=== PATIENT | female | born 1965 | race Caucasian/White ===

== ENCOUNTER 2018-05-14 10:06 | Emergency (ER) | payer MEDICAID ==
[~2018-05-14] VITALS: Ht 157.5 cm; Wt 102.3 kg
[2018-05-14 10:11] VITALS: Ht 157.5 cm; Wt 102.3 kg
[2018-05-14] MEDS ORDERED: NORCO 5/325 TAB1 TAB PO (10:13)
[2018-05-14] MEDS ORDERED: IMITREX100 MG PO (10:13)
[2018-05-14] MEDS ORDERED: LIORESAL 10 MG10 MG PO (10:13)
[2018-05-14] MEDS ORDERED: NEURONTIN800 MG PO (10:14)
[2018-05-14] MEDS ORDERED: ULTRAM50 MG PO (10:14)
[2018-05-14] MEDS ORDERED: MOTRIN600 MG PO (10:15)
[2018-05-14] MEDS ORDERED: HYDROCHLOROTHIA25 MG PO (10:15)
[2018-05-14] MEDS ORDERED: TOPROL XL100 MG PO (10:15)
[2018-05-14] MEDS ORDERED: SYNTHROID88 MCG PO (10:16)
[2018-05-14] MEDS ORDERED: NORTRIPTYLINE H50 MG PO (10:16)
[2018-05-14] MEDS ORDERED: MIRAPEX0.5 MG PO (10:16)
[2018-05-14] MEDS ORDERED: PROZAC20 MG PO (10:16)
[2018-05-14] MEDS ORDERED: OMEPRAZOLE40 MG PO (10:16)
[2018-05-14] MEDS ORDERED: ALBUTEROL SULF8.5 GM INH (10:17)
[2018-05-14] MEDS ORDERED: ULTRAVATE50 GM TP (10:18)
[2018-05-14] MEDS ORDERED: BAYER CHEWABLE81 MG PO (10:18)
[2018-05-14] MEDS ORDERED: BUPROPION XL300 MG PO (10:18)
[2018-05-14] MEDS ORDERED: SYMBICORT 16010.2 GM INH (10:18)
[2018-05-14] MEDS ORDERED: MULTI-DAY VITAM1 TAB PO (10:19)
[2018-05-14 11:38] VITALS: BP 144/77
== END 2018-05-14 11:39 | disposition home or self-care (01) ==
LOC: D.ER 10:06
DX: G43.909 Migraine, unspecified, not intractable, without status migrainosus (principal); E07.9 Disorder of thyroid, unspecified; I10 Essential (primary) hypertension; J44.9 Chronic obstructive pulmonary disease, unspecified; E88.01 Alpha-1-antitrypsin deficiency; K21.9 Gastro-esophageal reflux disease without esophagitis

== ENCOUNTER 2018-05-16 02:03 | Emergency (ER) | payer MEDICAID ==
[~2018-05-16] VITALS: Ht 157.5 cm; Wt 102.3 kg
[~2018-05-16 02:03] MED LIST: ALBUTEROL SULF8.5 GM INH; BAYER CHEWABLE81 MG PO; BUPROPION XL300 MG PO; HYDROCHLOROTHIA25 MG PO; IMITREX100 MG PO; LIORESAL 10 MG10 MG PO; MIRAPEX0.5 MG PO; MOTRIN600 MG PO; MULTI-DAY VITAM1 TAB PO; NEURONTIN800 MG PO; NORCO 5/325 TAB1 TAB PO; NORTRIPTYLINE H50 MG PO; OMEPRAZOLE40 MG PO; PROZAC20 MG PO; SYMBICORT 16010.2 GM INH; SYNTHROID88 MCG PO; TOPROL XL100 MG PO; ULTRAM50 MG PO; ULTRAVATE50 GM TP
[2018-05-16 02:09] VITALS: Ht 157.5 cm; Wt 102.3 kg
[2018-05-16] MEDS ORDERED: STADOL NASAL S2.5 ML NASAL (02:44)
[2018-05-16 03:11] VITALS: BP 134/77
== END 2018-05-16 03:11 | disposition home or self-care (01) ==
LOC: D.ER 02:03
DX: G43.909 Migraine, unspecified, not intractable, without status migrainosus (principal); E07.9 Disorder of thyroid, unspecified; I10 Essential (primary) hypertension; J44.9 Chronic obstructive pulmonary disease, unspecified; E88.01 Alpha-1-antitrypsin deficiency; K21.9 Gastro-esophageal reflux disease without esophagitis

== ENCOUNTER 2018-06-23 09:17 | Emergency (ER) | payer MEDICAID ==
[~2018-06-23] VITALS: Ht 157.5 cm; Wt 102.3 kg
[~2018-06-23 09:17] MED LIST changes: +STADOL NASAL S2.5 ML NASAL
[2018-06-23 09:21] VITALS: Ht 157.5 cm; Wt 102.3 kg
[2018-06-23 11:45] VITALS: BP 124/62
== END 2018-06-23 11:45 | disposition home or self-care (01) ==
LOC: D.ER 09:17
DX: G43.119 Migraine with aura, intractable, without status migrainosus (principal); I10 Essential (primary) hypertension; J44.9 Chronic obstructive pulmonary disease, unspecified; E88.01 Alpha-1-antitrypsin deficiency

== ENCOUNTER 2018-07-18 07:00 | Emergency (ER) | payer MEDICAID ==
[~2018-07-18] VITALS: Ht 157.5 cm; Wt 107.7 kg
[2018-07-18 07:03] VITALS: Ht 157.5 cm; Wt 107.7 kg
[2018-07-18 07:33] LABS: BASOPHILS 0.1 % (0-2); EOSINOPHILS 2.5 % (0-7); HEMATOCRIT 37.4 % (36.0-48.0); HEMOGLOBIN 12.4 g/dL (12-16); IMMATURE GRANULOCYTES 0.5 % (0-5); MCHC 33.2 g/dL (31.0-37.0); MCV 87.4 fL (80.0-100.0); MEAN PLATELET VOLUME 8.8 fL (7.4-10.4); MONOCYTES 8.4 % (2-11); NEUTROPHILS 68.5 % (40-80); PLATELET COUNT 313 10x3/uL (130-400); RBC 4.28 10x6/uL (4.00-5.40); RDW 14.5 % (11.5-14.5); WBC 7.9 10x3/uL (4.8-10.8)
[2018-07-18 07:47] LABS: ALBUMIN 3.8 g/dL (3.4-5.0); ANION GAP 16.3 mmol/L (8-16); BILIRUBIN - TOTAL 0.26 mg/dL (0.2-1.3); CALCIUM 9.5 mg/dL (8.5-10.1); CARBON DIOXIDE 24.7 mmol/L (21.0-32.0); CREATININE - SERUM 1.1 mg/dL (0.6-1.3); MAGNESIUM - SERUM 1.8 mg/dL (1.8-2.4); PROTEIN - SERUM 8.3 g/dL (6.4-8.2)
[2018-07-18] MEDS ORDERED: ZOFRAN ODT4 MG/UDTAB PO (07:50)
[2018-07-18] MEDS ORDERED: LOMOTIL 2.5-0.1 EAC1 PO (07:50)
[2018-07-18 08:00] LABS: APPEARANCE CLEAR (CLEAR); BILIRUBIN NEGATIVE (NEGATIVE); COLOR YELLOW (YELLOW); GLUCOSE NEGATIVE (NEGATIVE); KETONE NEGATIVE (NEGATIVE); NITRITE NEGATIVE (NEGATIVE); PROTEIN NEGATIVE (NEGATIVE); UROBILINOGEN NORMAL (NORMAL)
[2018-07-18 08:05] VITALS: BP 124/70
[2018-07-20 07:58] VITALS: Ht 157.5 cm; Wt 107.7 kg
== END 2018-07-18 08:06 | disposition home or self-care (01) ==
LOC: D.ER 07:00
PROVIDERS: Family Medicine
DX: R19.7 Diarrhea, unspecified (principal); I10 Essential (primary) hypertension; J44.9 Chronic obstructive pulmonary disease, unspecified

== ENCOUNTER 2018-07-19 23:15 | Inpatient (IN) | payer MEDICAID ==
[~2018-07-19] VITALS: Ht 157.5 cm; Wt 71.4 kg
[~2018-07-19 23:15] MED LIST changes: +LOMOTIL 2.5-0.1 EAC1 PO; +ZOFRAN ODT4 MG/UDTAB PO
[2018-07-19 23:57] LABS: BASOPHILS 0.1 % (0-2); EOSINOPHILS 3.3 % (0-7); HEMATOCRIT 41.7 % (36.0-48.0); HEMOGLOBIN 13.6 g/dL (12-16); IMMATURE GRANULOCYTES 0.3 % (0-5); LYMPHOCYTES 18.6 % (15-50); MCH 29.1 pg (26.0-34.0); MCHC 32.6 g/dL (31.0-37.0); MCV 89.3 fL (80.0-100.0); MEAN PLATELET VOLUME 8.8 fL (7.4-10.4); MONOCYTES 11.8 % (2-11); NEUTROPHILS 65.9 % (40-80); RBC 4.67 10x6/uL (4.00-5.40); RDW 14.6 % (11.5-14.5); WBC 8.7 10x3/uL (4.8-10.8)
[2018-07-19 23:59] LABS: PLATELET COUNT 388 10x3/uL (130-400)
[2018-07-20 00:10] LABS: ALBUMIN 3.9 g/dL (3.4-5.0); ANION GAP 11.2 mmol/L (8-16); BILIRUBIN - TOTAL 0.4 mg/dL (0.2-1.3); CALCIUM 9.3 mg/dL (8.5-10.1); CREATININE - SERUM 1.3 mg/dL (0.6-1.3); POTASSIUM - SERUM 4.2 mmol/L (3.5-5.1); PROTEIN - SERUM 8.4 g/dL (6.4-8.2)
[2018-07-20 01:30] LABS: AMYLASE - SERUM 25 U/L (25-115); LIPASE 109 U/L (73-393)
[2018-07-20 02:03] LABS: APPEARANCE CLEAR (CLEAR); BILIRUBIN NEGATIVE (NEGATIVE); COLOR YELLOW (YELLOW); GLUCOSE NEGATIVE (NEGATIVE); KETONE NEGATIVE (NEGATIVE); NITRITE NEGATIVE (NEGATIVE); PROTEIN NEGATIVE (NEGATIVE); SPECIFIC GRAVITY 1.015 (1.005-1.020); UROBILINOGEN NORMAL (NORMAL)
[2018-07-20 05:54] VITALS: BP 148/70; BMI 44.4
[2018-07-20 07:58] VITALS: Ht 157.5 cm; Wt 71.4 kg
[2018-07-20 08:39] LABS: BASOPHILS 0.1 % (0-2); EOSINOPHILS 2.3 % (0-7); HEMATOCRIT 39.9 % (36.0-48.0); IMMATURE GRANULOCYTES 0.3 % (0-5); MCHC 32.6 g/dL (31.0-37.0); MCV 89.1 fL (80.0-100.0); MEAN PLATELET VOLUME 8.7 fL (7.4-10.4); MONOCYTES 8.1 % (2-11); NEUTROPHILS 75.2 % (40-80); PLATELET COUNT 334 10x3/uL (130-400); RBC 4.48 10x6/uL (4.00-5.40); RDW 14.7 % (11.5-14.5); WBC 7.9 10x3/uL (4.8-10.8)
[2018-07-20 08:50] LABS: ALBUMIN 3.4 g/dL (3.4-5.0); ANION GAP 14.3 mmol/L (8-16); BILIRUBIN - TOTAL 0.38 mg/dL (0.2-1.3); CALCIUM 8.3 mg/dL (8.5-10.1); CARBON DIOXIDE 25.5 mmol/L (21.0-32.0); CREATININE - SERUM 1.1 mg/dL (0.6-1.3); POTASSIUM - SERUM 3.8 mmol/L (3.5-5.1); PROTEIN - SERUM 7.7 g/dL (6.4-8.2)
[2018-07-20 11:33] VITALS: BP 134/74
[2018-07-20 16:41] VITALS: BP 140/78
[2018-07-20 19:40] VITALS: BP 119/69
[2018-07-20 23:55] VITALS: BP 131/56
[2018-07-21 03:45] VITALS: BP 117/59
[2018-07-21 06:56] LABS: BASOPHILS 0.5 % (0-2); EOSINOPHILS 3.6 % (0-7); HEMATOCRIT 34.1 % (36.0-48.0); IMMATURE GRANULOCYTES 0.9 % (0-5); LYMPHOCYTES 18.5 % (15-50); MCH 28.8 pg (26.0-34.0); MCHC 32.3 g/dL (31.0-37.0); MCV 89.3 fL (80.0-100.0); MEAN PLATELET VOLUME 9.2 fL (7.4-10.4); MONOCYTES 10.5 % (2-11); PLATELET COUNT 249 10x3/uL (130-400); RBC 3.82 10x6/uL (4.00-5.40); RDW 14.8 % (11.5-14.5); WBC 5.8 10x3/uL (4.8-10.8)
[2018-07-21 07:35] LABS: ALBUMIN 2.9 g/dL (3.4-5.0); ALKALINE PHOSPHATASE 84 U/L (46-116); ALT (SGPT) 22 U/L (10-68); BILIRUBIN - TOTAL 0.25 mg/dL (0.2-1.3); CALC OSMOLALITY 278 mosm/kg (275-300); CALCIUM 7.9 mg/dL (8.5-10.1); CARBON DIOXIDE 23.6 mmol/L (21.0-32.0); CHLORIDE - SERUM 106 mmol/L (98-107); CREATININE - SERUM 0.8 mg/dL (0.6-1.3); GLUCOSE 109 mg/dL (74-106); POTASSIUM - SERUM 3.2 mmol/L (3.5-5.1); PROTEIN - SERUM 6.3 g/dL (6.4-8.2); SODIUM 140 mmol/L (136-145); UREA NITROGEN 9 mg/dL (7-18); eGFR NON AFRICAN AMERICAN 80 mL/min (90-120)
[2018-07-21 08:24] VITALS: BP 150/63
[2018-07-21 12:03] VITALS: BP 147/89
[2018-07-21 16:00] VITALS: BP 134/74
[2018-07-21 20:00] VITALS: BP 122/73
[2018-07-22] VITALS (8 sets, daily range): BP systolic 98–145; BP diastolic 45–88
[2018-07-22 07:10] LABS: BASOPHILS 0.2 % (0-2); EOSINOPHILS 4.9 % (0-7); HEMATOCRIT 33.6 % (36.0-48.0); HEMOGLOBIN 10.6 g/dL (12-16); IMMATURE GRANULOCYTES 0.5 % (0-5); LYMPHOCYTES 24.3 % (15-50); MCH 28.2 pg (26.0-34.0); MCHC 31.5 g/dL (31.0-37.0); MCV 89.4 fL (80.0-100.0); MEAN PLATELET VOLUME 8.7 fL (7.4-10.4); MONOCYTES 9.5 % (2-11); NEUTROPHILS 60.6 % (40-80); PLATELET COUNT 245 10x3/uL (130-400); RBC 3.76 10x6/uL (4.00-5.40); RDW 14.7 % (11.5-14.5); WBC 6.3 10x3/uL (4.8-10.8)
[2018-07-22 07:26] LABS: ALBUMIN 3.1 g/dL (3.4-5.0); ANION GAP 13.5 mmol/L (8-16); BILIRUBIN - TOTAL 0.13 mg/dL (0.2-1.3); CALCIUM 8.1 mg/dL (8.5-10.1); CARBON DIOXIDE 25.7 mmol/L (21.0-32.0); CREATININE - SERUM 0.9 mg/dL (0.6-1.3); POTASSIUM - SERUM 3.2 mmol/L (3.5-5.1); PROTEIN - SERUM 6.9 g/dL (6.4-8.2)
--- NOTE | 2018-07-22 13:24 | MORECARE ---
CASE MANAGEMENT DISCHARGE SUMMARY PATIENT: TOBY ANNA UNIT: [id number] ADM DATE: 07/20/18 AGE: 53 : 69 SEX: F ROOM/BED: D.1202 AUTHOR: ANGI PARTIDA PHYSICIAN: REFERRING PHYSICIAN: ROSEMARIE VALDEZ MD DATE OF SERVICE: 07/22/18 Discharge Plan Patient Name: TOBY ANNA Facility: [facility]:[place] : 1965 Planned Disposition: Home Anticipated Discharge Date: 07/23/18 Discharge Date: Expected LOS: 3 Initial Reviewer: [email or web address] Initial Review Date: 07/22/2018 Generated: 07/22/18 2:23 pm Patient Name: TOBY ANNA Page [phone] at 1324 All edits/amendments must be made on the electronic document DICTATION DATE: 07/22/18 1323 TRIGONOMETRY TUTOR: SURESH 07/22/18 1323 RPT#: [id number] DC DATE: STATUS: ADM IN [facility] [address] [place] [address] END OF REPORT
--- NOTE | 2018-07-22 13:30 | MORECARE ---
CASE MANAGEMENT DISCHARGE SUMMARY PATIENT: TOBY ANNA UNIT: [id number] ADM DATE: 07/20/18 AGE: 53 : 69 SEX: F ROOM/BED: D.1202 AUTHOR: ANGI PARTIDA PHYSICIAN: REFERRING PHYSICIAN: ROSEMARIE VALDEZ MD DATE OF SERVICE: 07/22/18 Discharge Plan Patient Name: TOBY ANNA Facility: [facility]:[place] : 1965 Planned Disposition: Home Anticipated Discharge Date: 07/23/18 Discharge Date: Expected LOS: 3 Initial Reviewer: [email or web address] Initial Review Date: 07/22/2018 Generated: 07/22/18 2:30 pm DCPIA - Discharge Planning Initial Assessment Updated by [email or web address]: Esthela Power on 07/22/18 1:25 pm * Is the patient Alert and Oriented? Yes * How many steps to enter\exit or inside your home? 23 w/rail * PCP Terra Jolly with [facility]. Changing to Dr. Sharp * Pharmacy [facility] on [address] * Preadmission Environment Home with Family * ADLs Partial Dependent * Partial ADLs (Assistance needed) Dressing * Equipment Back Brace Bedside Commode Cane Walker * Other Equipment Spinal Stimulator * List name and contact numbers for known caregivers / representatives who currently or will assist patient after discharge: Daniel Louie Jr., Significant other, * Verbal permission to speak to the caregivers and representatives has been obtained from the patient. Yes * Community resources currently utilized None * Additional services required to return to the preadmission environment? No * Can the patient safely return to the preadmission environment? Yes * Has this patient been hospitalized within the prior 30 days at any hospital? No Last DP export: 07/22/18 12:24 Patient Name: TOBY ANNA Page 31420 at 1330 All edits/amendments must be made on the electronic document DICTATION DATE: 07/22/18 1330 CANDY MIXER: SURESH 07/22/18 1330 RPT#: [id number] DC DATE: STATUS: ADM IN [facility] [address] [place] [address] END OF REPORT
--- NOTE | 2018-07-22 14:09 | MORECARE ---
CASE MANAGEMENT DISCHARGE SUMMARY PATIENT: TOBY ANNA UNIT: [id number] ADM DATE: 07/20/18 AGE: 53 : 69 SEX: F ROOM/BED: D.1202 AUTHOR: JAQUAN,DOC PHYSICIAN: REFERRING PHYSICIAN: ROSEMARIE VALDEZ MD DATE OF SERVICE: 07/22/18 Discharge Plan Patient Name: TOBY ANNA Facility: [facility]:[place] : 1965 Planned Disposition: Home Anticipated Discharge Date: 07/23/18 Discharge Date: Expected LOS: 3 Initial Reviewer: [email or web address] Initial Review Date: 07/22/2018 Generated: 07/22/18 3:09 pm Comments DCP- Discharge Planning Updated by [email or web address]: Esthela Power on 07/22/18 1:[address] Patient Name: TOBY ANNA Admission Status: ER Accout number: [id number] Admission Date: 07-20-2018 : 1965 Admission Diagnosis: Attending: ROSEMARIE CONKLIN Current LOS: 2 Anticipated DC Date: 07-23-2018 Planned Disposition: Home Primary Insurance: MEDICAID [place] Discharge Planning Comments: After Daniel obtaining verbal consent, CM met with patient and significant other, Daniel Louie JrGuille ([phone]) about discharge planning / needs. Patient states her plan is to return home where she lives with Daniel. Denies any discharge planning needs. States Daniel will drive her home upon hospital discharge. States Daniel helps her with anything she needs. CM will continue to follow and assist as needed with discharge planning / needs Outbound Call Center Representative: Esthela Power DCPIA - Discharge Planning Initial Assessment Updated by [email or web address]: Esthela Power on 07/22/18 1:25 pm * Is the patient Alert and Oriented? Yes * How many steps to enter\exit or inside your home? 23 w/rail * PCP Terra Jolly with [facility]. Changing to Dr. Sharp * Pharmacy [facility] on [address] * Preadmission Environment Home with Family * ADLs Partial Dependent * Partial ADLs (Assistance needed) Dressing * Equipment Back Brace Bedside Commode Cane Walker * Other Equipment Spinal Stimulator * List name and contact numbers for known caregivers / representatives who currently or will assist patient after discharge: Daniel Louie Jr., Significant other, * Verbal permission to speak to the caregivers and representatives has been obtained from the patient. Yes * Community resources currently utilized None * Additional services required to return to the preadmission environment? No * Can the patient safely return to the preadmission environment? Yes * Has this patient been hospitalized within the prior 30 days at any hospital? No Last DP export: 07/22/18 12:30 Patient Name: TOBY ANNA Page [phone] at 1409 All edits/amendments must be made on the electronic document DICTATION DATE: 07/22/181407 HIGH SCHOOL BAND TEACHER: SURESH 07/22/181407 RPT#: [id number] DC DATE: STATUS: ADM IN [facility] [address] [place] [address] END OF REPORT
[2018-07-23] VITALS: BP 121/65
[2018-07-23 04:00] VITALS: BP 133/77
[2018-07-23 07:09] LABS: BASOPHILS 0.3 % (0-2); EOSINOPHILS 6.2 % (0-7); HEMATOCRIT 32.9 % (36.0-48.0); HEMOGLOBIN 10.4 g/dL (12-16); IMMATURE GRANULOCYTES 0.9 % (0-5); LYMPHOCYTES 20.4 % (15-50); MCH 28.3 pg (26.0-34.0); MCHC 31.6 g/dL (31.0-37.0); MCV 89.4 fL (80.0-100.0); MEAN PLATELET VOLUME 9.3 fL (7.4-10.4); MONOCYTES 8.7 % (2-11); NEUTROPHILS 63.5 % (40-80); PLATELET COUNT 269 10x3/uL (130-400); RBC 3.68 10x6/uL (4.00-5.40); RDW 14.8 % (11.5-14.5); WBC 6.7 10x3/uL (4.8-10.8)
[2018-07-23 07:31] LABS: ALBUMIN 3.1 g/dL (3.4-5.0); ANION GAP 15.3 mmol/L (8-16); BILIRUBIN - TOTAL 0.12 mg/dL (0.2-1.3); CALCIUM 8.8 mg/dL (8.5-10.1); CARBON DIOXIDE 24.8 mmol/L (21.0-32.0); CREATININE - SERUM 0.9 mg/dL (0.6-1.3); POTASSIUM - SERUM 3.1 mmol/L (3.5-5.1); PROTEIN - SERUM 6.6 g/dL (6.4-8.2)
[2018-07-23 08:28] VITALS: BP 122/87
[2018-07-23] MEDS ORDERED: DIFLUCAN150 MG PO (09:19)
[2018-07-23] MEDS ORDERED: LEVAQUIN750 MG PO (09:19)
[2018-07-23] MEDS ORDERED: FLAGYL500 MG PO (09:19)
[2018-07-23 16:03] VITALS: BP 135/81
--- NOTE | 2018-07-24 09:31 | MORECARE ---
CASE MANAGEMENT DISCHARGE SUMMARY PATIENT: TOBY ANNA UNIT: [id number] ADM DATE: 07/20/18 AGE: 53 : 69 SEX: F ROOM/BED: D.1202 AUTHOR: JAQUAN,DOC PHYSICIAN: REFERRING PHYSICIAN: ROSEMARIE VALDEZ MD DATE OF SERVICE: 07/24/18 Discharge Plan Patient Name: TOBY ANNA Facility: [facility]:[place] : 1965 Planned Disposition: Home Anticipated Discharge Date: 07/23/18 Discharge Date: 07/23/2018 Expected LOS: 3 Initial Reviewer: [email or web address] Initial Review Date: 07/22/2018 Generated: 07/24/18 10:31 am Comments DCP- Discharge Planning Updated by [email or web address]: Esthela Power on 07/22/18 1:[address] Patient Name: TOBY ANNA Admission Status: ER Accout number: [id number] Admission Date: 07-20-2018 : 1965 Admission Diagnosis: Attending: ROSEMARIE CONKLIN Current LOS: 2 Anticipated DC Date: 07-23-2018 Planned Disposition: Home Primary Insurance: MEDICAID [place] Discharge Planning Comments: After Daniel obtaining verbal consent, CM met with patient and significant other, Daniel Louie JrGuille ([phone]) about discharge planning / needs. Patient states her plan is to return home where she lives with Daniel. Denies any discharge planning needs. States Daniel will drive her home upon hospital discharge. States Daniel helps her with anything she needs. CM will continue to follow and assist as needed with discharge planning / needs Insurance Customer Service Specialist: Esthela Power DCPIA - Discharge Planning Initial Assessment Updated by [email or web address]: Esthela Power on 07/22/18 1:25 pm * Is the patient Alert and Oriented? Yes * How many steps to enter\exit or inside your home? 23 w/rail * PCP Terra Jolly with [facility]. Changing to Dr. Sharp * Pharmacy [facility] on [address] * Preadmission Environment Home with Family * ADLs Partial Dependent * Partial ADLs (Assistance needed) Dressing * Equipment Back Brace Bedside Commode Cane Walker * Other Equipment Spinal Stimulator * List name and contact numbers for known caregivers / representatives who currently or will assist patient after discharge: Daniel Liban Hurst, Significant other, * Verbal permission to speak to the caregivers and representatives has been obtained from the patient. Yes * Community resources currently utilized None * Additional services required to return to the preadmission environment? No * Can the patient safely return to the preadmission environment? Yes * Has this patient been hospitalized within the prior 30 days at any hospital? No Last DP export: 07/22/18 1:09 Patient Name: TOBY ANNA Page 48435 at 0931 All edits/amendments must be made on the electronic document DICTATION DATE: 07/24/18929 SIDE LASTER: SURESH 07/24/18929 RPT#: [id number] DC DATE:07/23/18 STATUS: DIS IN [facility] [address] [place] [address] END OF REPORT
[2018-07-29 03:06] LABS: OVA + PARASITE EXAM Final report (())
== END 2018-07-23 17:43 | disposition home or self-care (01) | DRG 392 ==
LOC: D.ER 23:15 → D.M3 07-20 04:05
PROVIDERS: Emergency Medicine; Family Medicine; ADMIT Family Medicine
DX: K52.9 Noninfective gastroenteritis and colitis, unspecified (principal); G47.30 Sleep apnea, unspecified; J44.9 Chronic obstructive pulmonary disease, unspecified; K21.9 Gastro-esophageal reflux disease without esophagitis; F32.9 Major depressive disorder, single episode, unspecified; I10 Essential (primary) hypertension; E87.6 Hypokalemia; D64.9 Anemia, unspecified; G43.909 Migraine, unspecified, not intractable, without status migrainosus

== ENCOUNTER 2018-11-12 08:55 | Day surgery (SDC) | payer MEDICAID ==
[2018-11-11 11:19] LABS: HEMATOCRIT 36.8 % (36.0-48.0); HEMOGLOBIN 11.8 g/dL (12-16); MCH 28.4 pg (26.0-34.0); MCHC 32.1 g/dL (31.0-37.0); MCV 88.5 fL (80.0-100.0); MEAN PLATELET VOLUME 8.9 fL (7.4-10.4); RBC 4.16 10x6/uL (4.00-5.40); RDW 14.3 % (11.5-14.5); WBC 7.9 10x3/uL (4.8-10.8)
[2018-11-11 11:25] LABS: ANION GAP 13.9 mmol/L (8-16); CALCIUM 9.4 mg/dL (8.5-10.1); CARBON DIOXIDE 28.7 mmol/L (21.0-32.0); POTASSIUM - SERUM 3.6 mmol/L (3.5-5.1)
[~2018-11-12] VITALS: Ht 157.5 cm; Wt 112.0 kg
[~2018-11-12 08:55] MED LIST changes: +DIFLUCAN150 MG PO; +FLAGYL500 MG PO; +LEVAQUIN750 MG PO; +METOPROLOL TART50 MG PO
[2018-11-12] MEDS ORDERED: KENALOG 0.1 % O15 GM TOPICAL (10:09)
[2018-11-12 10:10] VITALS: BP 132/54; Ht 157.5 cm; Wt 112.0 kg
[2018-11-12] MEDS ORDERED: KENALOG 0.1 % 115 GM TOPICAL (10:10)
[2018-11-12 10:18] LABS: HCG URINE NEGATIVE (NEGATIVE)
--- NOTE | 2018-11-12 16:02 | NUR ---
CARE TO GRACIELA GREGORY @[id number]
--- NOTE | 2018-11-12 17:36 | NUR ---
1730 PT EATING FULL LIQ TRAY. VS STABLE. URGE TO URINATE
--- NOTE | 2018-11-12 17:58 | NUR ---
PT ASSISTED TO BATHROOM,STEADY VOIDED. ADEQUET AMT. BLOOD NOTED. PT SKIN CLEANED AND INSTRUCTIONS GIVEN. DRINKING A COKE PER REQUEST. DENIES PAIN. RESTING FOR NOW
--- NOTE | 2018-11-12 19:08 | NUR ---
1900 IV REMOVED PRESSURE HELD,DRESSING APPLIED. PT EATTING WELL.
--- NOTE | 2018-11-12 19:10 | NUR ---
1900 FAMILY WENT TO HOUSE TO GET HER CLOTHES FOR PT
--- NOTE | 2018-11-12 20:58 | OP ---
PATIENT NAME: TOBY ANNA MEDICAL RECORD: [id number] :[birth year] LOCATION:D.OPS ADMISSION DATE: SURGEON: ADY GONZALEZ MD DATE OF OPERATION: 11/12/2018 SURGEON: Ady Gonzalez MD ANESTHESIA: General anesthesia by Jace Murray MD DIAGNOSES: Female stress urinary incontinence; midline cystocele, [place]-Walker grade II; alpha-1 antitrypsin deficiency. PROCEDURES: 1. Cystoscopy. 2. Pubovaginal sling with mesh - Coloplast Pietro graft. 3. Cystocele repair with cadaveric human dermis - Coloplast [place] dermis 8 x 12-cm sheet. BLOOD LOSS: 50 mL. SPECIMENS: None. FINDINGS: On cystoscopy, no bladder injury and no bladder tumors. Single ureteral orifices bilaterally. CLINICAL HISTORY: This is a 53-year-old female, A0, who has symptoms of female stress urinary incontinence. It has been present for years, but it has become much worse in the past 1-1/2 years. With coughing, sneezing, laughing, bending over, or lifting, she will have urinary incontinence. She is also having issues with leaking at night and wetting her bed. She has to use Depends and she is very bothered by this. She also leaks urine with sexual activity. She has no trouble having a bowel movement. She has no issues with emptying her rectum with defecation. Significantly, she has been found to have COPD and emphysema even though she has never smoked. She was worked up by pulmonology and found to have alpha-1 antitrypsin deficiency as the cause of this. This enzyme deficiency causes a net overactivity of collagenase and elastase enzymes, which break down connective tissue not only in the lungs but the entire body. As a result, she has laxity of the pelvic floor causing a cystocele, a minor degree of rectocele, and female stress urinary incontinence. On physical examination, she has a hypermobile urethra with female stress incontinence. She has a positive Ranjith test. She still has her uterus. She has a midline cystocele, [place]-Walker grade II; and a rectocele, [place]-Walker grade I. However, as she has no defecation symptoms from her rectocele, we did not do a rectocele repair today. Initially, I discussed using mesh versus fascia for the repairs. Due to her alpha-1 antitrypsin deficiency, she had agreed to use mesh as it would be resistant to enzymatic degradation. However,in the past week, the Food and Drug Administration suddenly had all pelvic prolapse mesh removed from the market. Also fl3ur has removed the bovine fascia that I had been using previously, off the market. The FDA decision did not affect the use of mesh for a pubovaginal sling. Also the use of mesh for sacral suspension, i.e., an abdominal sacrocolpopexy, is not affected. As a result of the FDA decision, I now have no other choice but to use cadaveric human dermis as it is the only remaining graft material left on the market. The alternative is to harvest the patient's own tissues; however, as I mentioned OPERATIVE REPORT [id number] WILFRIDOTOBY above, her own tissues are weak because of her enzyme deficiency and therefore it would not be of use to harvest her own tissues. SHE IS ALLERGIC TO NARAYAN INHIBITORS, PENICILLIN, AND MORPHINE. She was given Levaquin IV on-call to the OR. DESCRIPTION OF PROCEDURE: The patient was given induction of general anesthesia. She continued to have a lot of problems with restless legs syndrome and continuous movement of the legs even under anesthesia. Therefore, we had to get her intubated and ventilated and have her paralyzed for the case. She was shaved, prepped, and draped. A weighted speculum was used to hold down posterior vaginal wall. A Camargo catheter was inserted into the bladder and put to bag drainage. The labia majora was retracted laterally using stay sutures of #2 nylon. The #2 nylon was anchored to the medial thighs. The anterior vaginal wall was then infiltrated with Pitressin solution. Twenty units of Pitressin was dissolved in 100 mL of injectable normal saline. This served to perform hydrodissection of the anterior vaginal wall. I made a transverse incision at the level of the bladder neck. This was dissected through the pubocervical fascia, and on the anterolateral sides, I cleared off the obturator membrane. We also entered the space of Retzius anteriorly. Deeper in, we cleared off the ischial spine in the presacral space. The sacrospinous ligament, which attaches to the ischial spine, was dissected free with blunt dissection using fingers. At this point, the 4 suspensory sutures for the cystocele repair were inserted. We used the fl3ur Capio suturing device to place 2-0 Prolene sutures. The 2 posterior sutures were placed through the sacrospinous ligament 1 cm medial to the ischial spine. The purpose of moving medially is to avoid hitting the internal pudendal artery and nerve. These were tested for strength and they were found to be quite strong in their attachment. The anterior 2 suspensory sutures were placed up on to Reese's ligament. These were also tested for strength and they were found to be quite strong. The distance from ischial spine to ischial spine was measured using a flexible tape measure. This was actually 12 cm, which is ideal as this is the length of our graft. The distance from the apex of the vaginal dissection to the bladder neck was measured at 6 cm. An 8 x 12 cadaveric human dermis graft was marked out with an arch along the posterior wall so that the apex of the arch would be only 6 cm in depth. The purpose of the arch serves to give some space to allow for rectal expansion during defecation. The dermis was soaked in normal saline for a minute or two to rehydrate it. The 4 suspensory sutures were put through the respective corners. The 2 posterior graft arms was then pushed using Eritrean forceps all the way to the ischial spine and the sacrospinous ligament level. The suspensory sutures were then all tied down. This affected a good reduction of the cystocele. We then landmarked for the pubovaginal sling. The insertion point is inferior to the insertion of the adductor longus muscle on the descending pubic ramus. This corresponding point was marked on each side using a marking pen. A stab incision was made using #15 blade. The helical trocar was then placed through this insertion site and wound behind the descending pubic ramus and exited the anterior apex of the obturator membrane into the vaginal dissection space. Here, through the slots at the tip of the helical trocar, we inserted the Pietro polypropylene mesh graft. The helical trocars were then withdrawn, resulting in transobturator passage of the graft. I made sure that the graft lay flat under the mid urethra. I used a tacking suture of 3-0 Vicryl to prevent backwards migration of the graft towards the bladder neck. At this point, the graft still lay loosely under the urethra. The Camargo catheter was then removed. A 17-[place] cystoscope was used for visualization. No bladder injury was noted. OPERATIVE REPORT [id number] WILFRIDOTOBY While I was performing cystoscopy, I filled the bladder up to capacity using normal saline. Once the scope was removed, we could see fluid exiting per the urethra. The graft tension was gradually increased until there was no further leakage per the urethra. With fair amount of suprapubic pressure applied manually, I was able to elicit some leakage per the urethra. I increased the tension slightly, but I did not want to make it too tight that she would have trouble voiding after surgery. The graft arms were then cut off where they exited the skin in the groin incision area. The groin incisions were closed using simple interrupted 4-0 Vicryl. The vaginal dissection space was irrigated out using normal saline. The vaginal incision was closed using running 4-0 Vicryl. Vaginal packing consisting of Kerlix infiltrated with estrogen cream was placed into the vagina. It will be removed prior to her going home today. The Camargo catheter was removed. We will try to have her void today prior to going home. The 2 lateral retraction sutures of the labia majora were cut and removed entirely. The patient was awakened and brought back to the recovery room. I will see her at the end of this week to check to be sure that she is voiding and emptying properly. TRANSINT:[id number] Voice Confirmation ID: [id number] DOCUMENT ID: [id number] ADY GONZALEZ MD at 2058 CC: [id number] DICTATION DATE: 11/12/18 1504 SAMPLE PROCESSOR: 11/12/[address] [facility] 11/12/18 [place] [id number] [place] [id number]
== END 2018-11-12 19:40 | disposition home or self-care (01) ==
LOC: D.OPS 08:55
PROVIDERS: Anesthesiology; ATTEND Urology
DX: N39.3 Stress incontinence (female) (male) (principal); N81.10 Cystocele, unspecified; E88.01 Alpha-1-antitrypsin deficiency

== ENCOUNTER → 2018-11-15 17:57 | Outpatient (CLI) | payer MEDICAID ==
[~2018-11-15 17:57] MED LIST changes: +KENALOG 0.1 % 115 GM TOPICAL; +KENALOG 0.1 % O15 GM TOPICAL
== END | disposition home or self-care (01) ==
LOC: D.LABREF 17:57
DX: N39.0 Urinary tract infection, site not specified (principal)

== ENCOUNTER 2018-11-28 09:56 | Day surgery (SDC) | payer MEDICAID ==
[~2018-11-28] VITALS: Ht 157.5 cm; Wt 107.0 kg
[2018-11-28 10:20] LABS: HEMATOCRIT 31.4 % (36.0-48.0); HEMOGLOBIN 9.9 g/dL (12-16); MCHC 31.5 g/dL (31.0-37.0); MEAN PLATELET VOLUME 8.3 fL (7.4-10.4); RBC 3.53 10x6/uL (4.00-5.40); RDW 14.7 % (11.5-14.5); WBC 5.9 10x3/uL (4.8-10.8)
[2018-11-28 10:36] LABS: ANION GAP 12.9 mmol/L (8-16); CALCIUM 9.3 mg/dL (8.5-10.1); CREATININE - SERUM 0.9 mg/dL (0.6-1.3); POTASSIUM - SERUM 3.9 mmol/L (3.5-5.1)
[2018-11-28 14:29] VITALS: BP 144/75; Ht 157.5 cm; Wt 107.0 kg
[2018-11-28 14:45] LABS: HCG URINE NEGATIVE (NEGATIVE)
--- NOTE | 2018-11-28 14:46 | NUR ---
PT READY FOR SURGERY. HAS ASKED FOR PAIN MED ON SEVERAL OCCASIONS. ORDER RECEIVED FOR NORCO 5MG HOWEVER PATIENT REFUSED UNLESS SHE COULD HAVE PHENERGAN ALSO. VALIUM 5MG PO ADMINSTERED PREOP. HAD ALREADY RECEIVED 5MG PRIOR TO THIS DOSE. PT WAS LYING WITH EYES CLOSED. SIDERAILS UP, CL WITHIN REACH AND SIGNIFICANT OTHER AT BEDSIDE.
--- NOTE | 2018-11-28 15:15 | NUR ---
PT ASKING FOR MIRAPEX FOR RESTLESS LEG. RELATED TO PATIENT WOULD HAVE TO CONTACT DOCTOR FOR ORDER.
--- NOTE | 2018-11-28 15:57 | NUR ---
WENT TO TELL PATIENT THEY WERE COMING TO PICK HER UP IN ABOUT 30 MINUTES FOR SURGERY. PT RELATED SHE WAS READY TO GO HOME AND WAS EATING COOKIES. Alison DELGADO RN WENT TO OR AND INFORMED THEM OF PATIENT CANCELLING PROCEDURE. IV DC'D WITH CATHETER INTACT.
--- NOTE | 2018-11-28 16:15 | NUR ---
AFTER CANCELLING PROCEDURE PATIENT WAS TAKEN TO PRIVATE VEHICLE VIA WC BY SIGNIFICANT OTHER. DR GONZALEZ SPOKE WITH PATIENT PRIOR TO LEAVING.
== END 2018-11-28 16:15 | disposition home or self-care (01) ==
LOC: D.OPS 09:56 → D.PAN 12:45 → D.OPS 16:15
PROVIDERS: Anesthesiology; ATTEND Urology
DX: T81.31XA Disruption of external operation (surgical) wound, not elsewhere classified, initial encounter (principal); Z53.29 Procedure and treatment not carried out because of patient's decision for other reasons; Z01.812 Encounter for preprocedural laboratory examination

== ENCOUNTER 2018-12-10 06:17 | Day surgery (SDC) | payer MEDICAID ==
[~2018-12-10] VITALS: Ht 157.5 cm; Wt 107.0 kg
[2018-12-10 06:42] LABS: HEMATOCRIT 33.7 % (36.0-48.0); HEMOGLOBIN 10.8 g/dL (12-16); MCV 87.3 fL (80.0-100.0); MEAN PLATELET VOLUME 8.5 fL (7.4-10.4); RBC 3.86 10x6/uL (4.00-5.40); RDW 14.6 % (11.5-14.5); WBC 5.6 10x3/uL (4.8-10.8)
[2018-12-10 06:50] LABS: ANION GAP 14.6 mmol/L (8-16); CALCIUM 9.3 mg/dL (8.5-10.1); CARBON DIOXIDE 26.2 mmol/L (21.0-32.0); CREATININE - SERUM 0.9 mg/dL (0.6-1.3); POTASSIUM - SERUM 3.8 mmol/L (3.5-5.1)
[2018-12-10 07:06] VITALS: BP 138/80; Ht 157.5 cm; Wt 107.0 kg
[2018-12-10 07:37] LABS: HCG URINE NEGATIVE (NEGATIVE)
--- NOTE | 2018-12-10 14:59 | NUR ---
1430 VOIDED AND VAGINAL PACKING REMOVED
--- NOTE | 2018-12-10 15:31 | OP ---
PATIENT NAME: TOBY ANNA MEDICAL RECORD: [id number] :[birth year] LOCATION:D.OPS ADMISSION DATE: SURGEON: ADY GONZALEZ MD DATE OF OPERATION: 12/10/2018 SURGEON: Ady Gonzalez MD ANESTHESIA: General anesthesia by Jace Murray MD DIAGNOSIS: Vaginal incision disruption with vaginal mesh graft extrusion. PROCEDURES: Examination under anesthesia, cystoscopy, and removal of extruded vaginal mesh. FINDINGS: Vaginal incision was disrupted. Vaginal mesh graft extrusion seen. On cystoscopy, no bladder injury or urethral injury. SPECIMEN: Pubovaginal sling mesh of Coloplast Pietro. BLOOD LOSS: None. CLINICAL HISTORY: This is a 53-year-old female who has a history of alpha-1 antitrypsin deficiency as well as female stress incontinence and cystocele. On 11/12/2018, she had a pubovaginal sling with Coloplast Pietro mesh and a cystocele repair using cadaveric dermis. On her followup examination, she reported that she was having lot of vaginal bleeding and that there was tissue material coming out of the vagina. She was scheduled to have an examination under anesthesia. Unfortunately, on that date that she was scheduled, she was somewhat late in the afternoon to be operated upon, and by that time, she could not tolerate her hunger from being n.p.o. and she ate a cookie. Therefore, the operation had to be canceled. She comes today to have the examination under anesthesia done. SHE IS ALLERGIC TO NARAYAN INHIBITORS, PENICILLIN, AND MORPHINE. She was given Levaquin on-call to the OR. DESCRIPTION OF PROCEDURE: The patient was given induction of general anesthesia in supine position. She was then placed into lithotomy position and prepped and draped. I first performed cystoscopy on her using a 17-[place] cystoscope with a 30-degree lens. Bladder was normal with no signs of tumors or other abnormalities. There were single ureteral orifices on each side. I then placed the scope into the vagina for vaginoscopy. Here, I could see some disruption of the suture line, especially in the midline. I placed forceps into the base of the disruption and I encountered vaginal mesh graft from her pubovaginal sling. Therefore, the graft, being extruded, now needs to be completely removed. The scope was put away. A Camargo catheter was put into the bladder for bag drainage. Using Metzenbaum scissors with a right-angle clamp to put tension on the graft, I dissected both graft arms up to the obturator membrane. Another right-angle clamp was then placed right up against the obturator membrane on the graft itself, and by pulling steadily, the entire graft arm came out of its transobturator passage. This was done on each side. The entire graft was removed as one long strip. We sent it to pathology for identification. I irrigated out the wound. Then, closure of the vaginal transverse incision was made using 3-0 Vicryl in running fashion. The vagina will be packed with Kerlix infiltrated with estrogen cream. This packing will stay in for few hours and then be removed prior to the patient going home. Also, at the end of the procedure, the Camargo catheter was removed. The plan now is to let her heal. OPERATIVE REPORT [id number] TOBY ANNA Once 2-3 months elapses, then I can go back and put a new pubovaginal sling in. TRANSINT:[id number] Voice Confirmation ID: [id number] DOCUMENT ID: [id number] ADY GONZALEZ MD at 1531 CC: [id number] DICTATION DATE: 12/10/18 1231 MILITARY EXCHANGE WIRELESS MANAGER: 12/10/18 1357 [facility] 12/10/18 [facility] [address] [place] [address]
== END 2018-12-10 14:55 | disposition home or self-care (01) ==
LOC: D.OPS 06:17 → D.PAN 09:00 → D.OPS 12:00
PROVIDERS: Anesthesiology; ATTEND Urology
DX: T83.721A Exposure of implanted vaginal mesh into vagina, initial encounter (principal); E88.01 Alpha-1-antitrypsin deficiency; T81.32XA Disruption of internal operation (surgical) wound, not elsewhere classified, initial encounter; Z88.5 Allergy status to narcotic agent; Z88.0 Allergy status to penicillin; Z88.8 Allergy status to other drugs, medicaments and biological substances; Z01.812 Encounter for preprocedural laboratory examination

== ENCOUNTER → 2019-01-14 15:56 | Outpatient (CLI) | payer MEDICAID ==
[2018-12-10 07:06] VITALS: BMI 43.2
== END | disposition home or self-care (01) ==
LOC: D.LABREF 15:56
PROVIDERS: ATTEND Internal Medicine Pulmonary Disease
DX: E88.01 Alpha-1-antitrypsin deficiency (principal)

== ENCOUNTER → 2019-01-29 16:34 | Outpatient (CLI) | payer MEDICAID ==
[2018-12-10 07:06] VITALS: BMI 43.2
== END | disposition home or self-care (01) ==
LOC: D.LABREF 16:34
PROVIDERS: ATTEND Urology
DX: D72.829 Elevated white blood cell count, unspecified (principal); R31.9 Hematuria, unspecified

== ENCOUNTER → 2019-02-07 14:23 | Outpatient (CLI) | payer MEDICAID ==
[2018-12-10 07:06] VITALS: BMI 43.2
== END | disposition home or self-care (01) ==
LOC: D.RAD 14:23 → D.RT 15:00
PROVIDERS: ATTEND Internal Medicine Pulmonary Disease
DX: E88.01 Alpha-1-antitrypsin deficiency (principal)

== ENCOUNTER 2019-02-20 05:20 | Day surgery (SDC) | payer MEDICAID ==
[2019-02-18 14:24] LABS: BASOPHILS 0.1 % (0-2); EOSINOPHILS 0.1 % (0-7); HEMOGLOBIN 11.4 g/dL (12-16); IMMATURE GRANULOCYTES 1.1 % (0-5); LYMPHOCYTES 9.9 % (15-50); MCH 27.3 pg (26.0-34.0); MCHC 31.7 g/dL (31.0-37.0); MCV 86.1 fL (80.0-100.0); MEAN PLATELET VOLUME 8.7 fL (7.4-10.4); MONOCYTES 6.5 % (2-11); NEUTROPHILS 82.3 % (40-80); PLATELET COUNT 351 10x3/uL (130-400); RBC 4.18 10x6/uL (4.00-5.40); WBC 11.3 10x3/uL (4.8-10.8)
[2019-02-18 14:36] LABS: ANION GAP 14.2 mmol/L (8-16); CALCIUM 9.2 mg/dL (8.5-10.1); CARBON DIOXIDE 26.7 mmol/L (21.0-32.0); CREATININE - SERUM 0.9 mg/dL (0.6-1.3); POTASSIUM - SERUM 3.9 mmol/L (3.5-5.1)
[2019-02-18 14:39] LABS: APTT 24.1 SECONDS (22.8-39.4); INR 0.99 (0.85-1.17); PROTIME 12.6 SECONDS (11.6-15.0)
[~2019-02-20] VITALS: Ht 157.5 cm; Wt 109.1 kg
[2019-02-20 06:47] VITALS: BP 145/80; Ht 157.5 cm; Wt 109.1 kg
[2019-02-20 06:48] LABS: HCG URINE NEGATIVE (NEGATIVE)
--- NOTE | 2019-02-20 10:30 | NUR ---
OPA INSERTED IN AIRWAY @1018
--- NOTE | 2019-02-20 10:37 | NUR ---
SCOPE PATCH BELOW RT EAR ON ADMIT
--- NOTE | 2019-02-20 10:57 | OP ---
PATIENT NAME: TOBY ANNA MEDICAL RECORD: [id number] :69 LOCATION:[facility] ADMISSION DATE: SURGEON: ADY GONZALEZ MD DATE OF OPERATION: 02/20/2019 SURGEON: Ady Gonzalez MD ANESTHESIA: General anesthesia by Srinivasan Iniguez CRNA DIAGNOSES: Female stress urinary incontinence, rectocele, Marshall-Walker grade II. PROCEDURES: Cystoscopy, pubovaginal sling, rectocele repair. ESTIMATED BLOOD LOSS: 150 mL. CLINICAL HISTORY: This is a 53-year-old female, who claimed initially that she had an alpha-1 antitrypsin deficiency. She had a pubovaginal sling and cystocele repair earlier this year. The cystocele repair was with cadaveric fascia. The sling was with the Coloplast sling. This mesh sling became exposed vaginally and had to be entirely removed. She then developed stress incontinence again. She also has trouble with defecation now. She has developed a Marshall-Walker grade II rectocele in the interim. After allowing the vaginal incisions to fully heal, she comes now to have a new pubovaginal sling inserted. We are going to be using the Orosi Obtryx II mesh sling. This will be in transobturator passage. Also, she is going to have a rectocele repair by levator ani plication. SHE IS ALLERGIC TO MORPHINE, PENICILLIN, AND NARAYAN INHIBITORS. She was given Levaquin IV diabetes solutions specialist to the OR. DESCRIPTION OF PROCEDURE: The patient was given induction of general anesthesia in supine position. She was then placed into the lithotomy position and shaved, prepped and draped. A 16-[place] Camargo catheter was placed into the bladder and put to bag drainage. A weighted speculum was used to hold the posterior vaginal wall down. A #1 nylon sutures were used to retract the labia majora laterally. These are anchored to the medial thighs. Anterior vaginal wall was infiltrated using Pitressin solution. Twenty units of Pitressin was dissolved in 100 mL of normal saline. A 1 cm long vertical midline incision was made over the urethra. Then, we dissected the plane between the vaginal mucosa and the urethra using Metzenbaum scissors. Eventually, we penetrated through the pubocervical fascia and cleared off the obturator membrane surfaces on each side. We then landmarked for the passage of the transobturator passage of the trocars. The entry point was inferior to the insertion of the adductor longus muscle. This was marked just lateral to the descending pubic ramus. A stab incision was made here on each side. The trocar was passed deep to the descending pubic ramus and out through the apex of the obturator membrane. Once the tip of the helical trocar was in the vaginal dissection space, the tip of the pubovaginal sling was clipped to the tip and then the trocar was withdrawn resulting in transobturator passage of the graft. This was done on each side. There was a tab on the midportion of the graft to indicate the midpoint. This was placed under the mid urethra. This tab was then cut off. The Camargo catheter was removed. Cystoscopy was performed using a 17-[place] Citizen scope and 30-degree lens. No bladder injury was seen. No bladder tumors were seen. She has single ureteral orifices on each side. The bladder was filled to capacity with normal saline. When we pushed on the suprapubic region, we could see leakage of urine per the urethra. We then placed the legs in the very low lithotomy position. The sling tension OPERATIVE REPORT [id number] TOBY ANNA NONA was gradually increased until no further leakage was seen with manual suprapubic pressure. The clear plastic sheath material was then completely removed. The graft was cut where it exited the inguinal skin. The inguinal stab incisions were closed using 2-0 Vicryl. This was with simple interrupted sutures. The vaginal dissection space was irrigated out using normal saline. The vaginal mucosa was closed using running 4-0 Monocryl. We then turned our attention to the rectocele. The posterior vaginal wall was infiltrated with Pitressin solution. An elliptical excision was marked out on the posterior vaginal wall with the apex of the lips at the introitus. This ellipse was cut with a 15 blade. The island of tissue within the ellipse was completely excised using Metzenbaum scissors. We then dissected the posterior vaginal wall in the plane between the vaginal wall and the anterior surface of the rectum using Metzenbaum scissors. We then exposed on either side the levator ani muscles. Horizontal mattress sutures were made using 2-0 Prolene. These were placed using a Capio suture. We started first with the deepest sutures. As the Capio sutures were placed, we tied the mattress sutures in turn and gradually came out to the surface. Four of these mattress sutures in total were used. This resulted in good reduction of the rectocele. The wound was then irrigated out with normal saline, and then the mucosa was closed using running 4-0 Monocryl. Vaginal packing consisting of Kerlix infiltrated with estrogen cream was then placed into the vagina. This packing will be removed prior to the patient going home today. The Camargo catheter was removed for a voiding trial today. I will see the patient in followup next week to check on her voiding symptoms. TRANSINT:[id number] Voice Confirmation ID: [id number] DOCUMENT ID: [id number] ADY GONZALEZ MD at 1057 CC: [id number] DICTATION DATE: 02/20/19 1011 [employer] G[employer] WARDEN: 02/20/19 1047 [address] [place] [address]
--- NOTE | 2019-02-20 11:00 | NUR ---
REC'D FROM RR. FAMILY AT BEDSIDE. DROWSY. RESPONDS TO VERBAL STIMULI. DIET DRINK BROUGHT TO PT.
--- NOTE | 2019-02-20 11:30 | NUR ---
LYING WITH EYES CLOSED. AROUSED TO VERBAL STIMULI. DRINKING DIET SODA. FAMILY AT BEDSIDE.
--- NOTE | 2019-02-20 11:54 | NUR ---
C/O PAIN 9/10 TO VAGINA AND RECTUM. NORCO 7.5MG PO ADMINISTERED PER ORDERS.
--- NOTE | 2019-02-20 12:16 | NUR ---
VOIDED WITHOUT DIFFICULTY.
--- NOTE | 2019-02-20 13:00 | NUR ---
IV DC'D WITH CATHETER INTACT. WRITTEN AND VERBAL DC INST. GIVEN TO PT. VERBALIZED UNDERSTANDING. FAMILY AT BEDSIDE. WAITING FOR SIGNIFICANT OTHER TO GET BACK FROM GETTING RX FILLED.
--- NOTE | 2019-02-20 13:35 | NUR ---
DC'D HOME WITH FAMILY VIA PRIVATE VEHICLE. STABLE AT TIME OF DC.
== END 2019-02-20 13:35 | disposition home or self-care (01) ==
LOC: D.OPS 05:20 → D.PAN 07:30 → D.OPS 07:30
PROVIDERS: ATTEND Urology
DX: N39.3 Stress incontinence (female) (male) (principal); N81.6 Rectocele; Z01.812 Encounter for preprocedural laboratory examination

== ENCOUNTER 2019-04-22 15:32 | Inpatient (IN) | payer MEDICAID ==
[~2019-04-22] VITALS: Ht 157.5 cm; Wt 110.0 kg
[2019-04-22 16:08] LABS: BASOPHILS 0.5 % (0-2); EOSINOPHILS 9.9 % (0-7); HEMATOCRIT 34.5 % (36.0-48.0); HEMOGLOBIN 10.6 g/dL (12-16); IMMATURE GRANULOCYTES 0.5 % (0-5); LYMPHOCYTES 18.7 % (15-50); MCH 26.5 pg (26.0-34.0); MCHC 30.7 g/dL (31.0-37.0); MCV 86.3 fL (80.0-100.0); MEAN PLATELET VOLUME 8.5 fL (7.4-10.4); MONOCYTES 8.1 % (2-11); NEUTROPHILS 62.3 % (40-80); PLATELET COUNT 352 10x3/uL (130-400); WBC 12.8 10x3/uL (4.8-10.8)
[2019-04-22 16:29] LABS: ALBUMIN 3.8 g/dL (3.4-5.0); ALKALINE PHOSPHATASE 83 U/L (46-116); ALT (SGPT) 35 U/L (10-68); BILIRUBIN - TOTAL 0.34 mg/dL (0.2-1.3); CALC OSMOLALITY 283 mosm/kg (275-300); CALCIUM 8.9 mg/dL (8.5-10.1); CARBON DIOXIDE 30.7 mmol/L (21.0-32.0); CHLORIDE - SERUM 99 mmol/L (98-107); CREATININE - SERUM 1.2 mg/dL (0.6-1.3); GLUCOSE 148 mg/dL (74-106); POTASSIUM - SERUM 3.2 mmol/L (3.5-5.1); PROTEIN - SERUM 7.9 g/dL (6.4-8.2); SODIUM 140 mmol/L (136-145); UREA NITROGEN 19 mg/dL (7-18); eGFR NON AFRICAN AMERICAN 50 mL/min (90-120)
[2019-04-22 16:40] LABS: CKMB 15.8 U/L (0.0-3.6); MAGNESIUM - SERUM 1.6 mg/dL (1.8-2.4)
[2019-04-22 16:41] LABS: CREATINE KINASE 950 UL (21-215); TROPONIN-I < 0.017 ng/mL (0.000-0.060)
[2019-04-22 17:43] VITALS: BP 109/55
--- NOTE | 2019-04-22 19:34 | NUR ---
PROVIDED SANDWICH, DRINK, AND FAN. DENIES OTHER NEEDS, CALL LIGHT WITHIN REACH, WILL CONTINUE TO MONITOR.
[2019-04-22 19:38] VITALS: BP 134/69
--- NOTE | 2019-04-22 20:07 | NUR ---
ROCEPHIN INFUSION COMPLETE AT THIS TIME.
[2019-04-22 22:38] VITALS: BP 146/78; BMI 44.4
[2019-04-23] VITALS: BP 130/52
[2019-04-23 04:00] VITALS: BP 150/66
[2019-04-23 06:18] LABS: BASOPHILS 0.1 % (0-2); EOSINOPHILS 0.1 % (0-7); HEMATOCRIT 34.4 % (36.0-48.0); HEMOGLOBIN 10.5 g/dL (12-16); IMMATURE GRANULOCYTES 0.6 % (0-5); LYMPHOCYTES 8.1 % (15-50); MCH 26.3 pg (26.0-34.0); MCHC 30.5 g/dL (31.0-37.0); MCV 86.2 fL (80.0-100.0); MEAN PLATELET VOLUME 8.8 fL (7.4-10.4); MONOCYTES 3.1 % (2-11); PLATELET COUNT 373 10x3/uL (130-400); RBC 3.99 10x6/uL (4.00-5.40); RDW 16.1 % (11.5-14.5); WBC 11.3 10x3/uL (4.8-10.8)
[2019-04-23 06:49] LABS: ALBUMIN 3.7 g/dL (3.4-5.0); ALKALINE PHOSPHATASE 80 U/L (46-116); ALT (SGPT) 35 U/L (10-68); BILIRUBIN - TOTAL 0.22 mg/dL (0.2-1.3); CALC OSMOLALITY 282 mosm/kg (275-300); CALCIUM 9.4 mg/dL (8.5-10.1); CARBON DIOXIDE 26.9 mmol/L (21.0-32.0); CHLORIDE - SERUM 99 mmol/L (98-107); CKMB 19.7 U/L (0.0-3.6); CREATININE - SERUM 1.1 mg/dL (0.6-1.3); GLUCOSE 174 mg/dL (74-106); MAGNESIUM - SERUM 1.8 mg/dL (1.8-2.4); PHOSPHOROUS 2.6 mg/dL (2.5-4.9); PRO BNP 253 pg/mL (0-125); PROTEIN - SERUM 7.9 g/dL (6.4-8.2); SODIUM 138 mmol/L (136-145); THYROID STIMULATING HORMONE 0.95 uIU/mL (0.36-3.74); TROPONIN-I < 0.017 ng/mL (0.000-0.060); UREA NITROGEN 21 mg/dL (7-18); eGFR NON AFRICAN AMERICAN 55 mL/min (90-120)
[2019-04-23 06:51] LABS: CREATINE KINASE 991 UL (21-215); POTASSIUM - SERUM 3.8 mmol/L (3.5-5.1)
[2019-04-23 07:56] LABS: APTT 24.5 SECONDS (22.8-39.4); INR 0.99 (0.85-1.17); PROTIME 12.6 SECONDS (11.6-15.0)
[2019-04-23 08:00] VITALS: BP 128/71
[2019-04-23 09:42] VITALS: Ht 157.5 cm; Wt 110.0 kg
[2019-04-23 11:56] LABS: CREATINE KINASE 1237 UL (21-215); TROPONIN-I < 0.017 ng/mL (0.000-0.060)
--- NOTE | 2019-04-23 12:47 | NUR ---
WHEN ASKED IF PATIENT WANTS A FLU SHOT, SHE STATES THAT SHE WILL REFER THIS TO HER PRIMARY DR HILLIARD.
--- NOTE | 2019-04-23 13:00 | NUR ---
LATE ENTRY: PATIENT TO STAY THE NIGHT AND NOT BE DISCHARGED TO RE-EVALUATE CPK LEVELS IN THE MORNING PER DR BROUSSARD.
[2019-04-23 13:59] VITALS: BP 131/75
--- NOTE | 2019-04-23 16:54 | MORECARE ---
CASE MANAGEMENT DISCHARGE SUMMARY PATIENT: TOBY ANNA UNIT: [id number] ADM DATE: 04/22/19 AGE: 54 : [birth year] SEX: F ROOM/BED: D.9703 AUTHOR: JAQUAN,DOC PHYSICIAN: REFERRING PHYSICIAN: ALVERTO BROUSSARD DO DATE OF SERVICE: 04/23/19 Discharge Plan Patient Name: TOBY ANNA Facility: [facility]:[place] : 1965 Planned Disposition: Home Anticipated Discharge Date: 04/24/19 Discharge Date: Expected LOS: 2 Initial Reviewer: [email or web address] Initial Review Date: 04/22/2019 Generated: 04/23/19 5:54 pm Comments DCP- Discharge Planning Updated by [email or web address]: Jasmeet Cleaning on 04/23/19 3:[address] Patient Name: TOBY ANNA Admission Status: ER Accout number: [id number] Admission Date: 04-22-2019 : 1965 Admission Diagnosis: Attending: ALVERTO BROUSSARD Current LOS: 1 Anticipated DC Date: 04-24-2019 Planned Disposition: Home Primary Insurance: MEDICAID [place] Discharge Planning Comments: CM MET WITH PT IN ROOM TO DISCUSS DISCHARGE PLANNING AND NEEDS. PT REPORTS LIVING AT HOME INDEPENDENTLY WITH HER BOYFRIEND PT HAS CPAP AND NEBULIZER. PT IS WORKING ON GETTING BIPAP THROUGH DR. BEAR. PT'S MEDICAL EQUIPMENT PROVIDER IS [employer]. PT HAS NO OUTSIDE SERVICES ASSISTING IN THE HOME. CM DISCUSSED AVAILABILITY OF HOME HEALTH, REHAB SERVICES AND MEDICAL EQUIPMENT. PT DENIES DISCHARGE NEEDS, REPORTS HER CAR IS IN THE PARKING LOT FOR HER TO DRIVE HERSELF HOME WHEN DISCHARGED. PT PLANS TO DISCHARGE HOME WITH BOYFRIEND, WILL BE DRIVING SELF HOME. PT HAS NO ANTICIPATED NEEDS FOR DISCHARGE AT THIS TIME. CM TO FOLLOW AND ASSIST IF NEEDED. Child And Youth Program Assistant: Jasmeet Cleaning DCPIA - Discharge Planning Initial Assessment Updated by [email or web address]: Jasmeet Cleaning on 04/23/19 4:48 pm * Is the patient Alert and Oriented? Yes * How many steps to enter\exit or inside your home? * PCP DR. HILLIARD, [facility] * Pharmacy [facility] * Preadmission Environment Home with Family * ADLs Independent * Equipment CPAP Nebulizer * Other Equipment [employer] - MEDICAL EQUIPMENT PROVIDER * List name and contact numbers for known caregivers / representatives who currently or will assist patient after discharge: STACIA ANAND, , * Verbal permission to speak to the caregivers and representatives has been obtained from the patient. N/A * Community resources currently utilized None * Please name any agencies selected above. NONE * Additional services required to return to the preadmission environment? No * Can the patient safely return to the preadmission environment? Yes * Has this patient been hospitalized within the prior 30 days at any hospital? No Patient Name: TOBY ANNA Page [id number] at 1654 All edits/amendments must be made on the electronic document DICTATION DATE: 04/23/191652 V BELT BUILDER: SURESH 04/23/191652 RPT#: [id number] DC DATE: STATUS: ADM IN [facility] [address] [place] [address] END OF REPORT
[2019-04-23 17:19] VITALS: BP 135/83
[2019-04-23 17:54] LABS: CKMB 23.8 U/L (0.0-3.6); TROPONIN-I < 0.017 ng/mL (0.000-0.060)
[2019-04-23 18:06] LABS: CREATINE KINASE 1011 UL (21-215)
--- NOTE | 2019-04-23 19:15 | NUR ---
REPORT RECEIVED, WILL CONTINUE POC. PATIENT IS A/OX4, UP AD ABBEY. PATIENT IS SITTING IN CHAIR AT BEDSIDE. NO S/S OF DISTRESS OBSERVED, RR EVEN AND UNLABORED, DYSPNEA ON EXERTION. IV TO LT HAND, SL, PATENT, DRSG C/D/I. PATIENT DENIES NEEDS AT THIS TIME. CL IN REACH, BED LOCKED AND LOWERED. WILL CTM.
[2019-04-23 20:00] VITALS: BP 106/57
--- NOTE | 2019-04-23 21:36 | NUR ---
ATTEMPTED TO GIVE PATIENT HS MEDS, PATIENT NOT IN ROOM.
--- NOTE | 2019-04-23 21:49 | NUR ---
PATIENT BACK IN ROOM, MEDS GIVEN. PATIENT TOLERATED WELL.
[2019-04-24] VITALS: BP 145/74
[2019-04-24 02:59] LABS: APPEARANCE CLEAR (CLEAR); BILIRUBIN NEGATIVE (NEGATIVE); COLOR YELLOW (YELLOW); GLUCOSE 50 mg/dL (NEGATIVE); KETONE NEGATIVE (NEGATIVE); NITRITE NEGATIVE (NEGATIVE); PROTEIN NEGATIVE (NEGATIVE); SPECIFIC GRAVITY 1.015 (1.005-1.020); UROBILINOGEN NORMAL (NORMAL)
[2019-04-24 04:00] VITALS: BP 131/54
[2019-04-24 05:12] LABS: BASOPHILS 0.1 % (0-2); EOSINOPHILS 0 % (0-7); HEMATOCRIT 34.4 % (36.0-48.0); HEMOGLOBIN 10.4 g/dL (12-16); IMMATURE GRANULOCYTES 0.5 % (0-5); LYMPHOCYTES 5.5 % (15-50); MCH 26.3 pg (26.0-34.0); MCHC 30.2 g/dL (31.0-37.0); MCV 87.1 fL (80.0-100.0); MONOCYTES 3.9 % (2-11); PLATELET COUNT 409 10x3/uL (130-400); RBC 3.95 10x6/uL (4.00-5.40); RDW 16.4 % (11.5-14.5)
[2019-04-24 05:26] LABS: WBC 19.3 10x3/uL (4.8-10.8)
[2019-04-24 05:36] LABS: ANION GAP 13.7 mmol/L (8-16); CALCIUM 9.1 mg/dL (8.5-10.1); CARBON DIOXIDE 28.4 mmol/L (21.0-32.0); CREATININE - SERUM 1.1 mg/dL (0.6-1.3); MAGNESIUM - SERUM 1.9 mg/dL (1.8-2.4); PHOSPHOROUS 2.1 mg/dL (2.5-4.9)
[2019-04-24 05:38] LABS: POTASSIUM - SERUM 3.1 mmol/L (3.5-5.1)
--- NOTE | 2019-04-24 08:22 | NUR ---
SCDS REFUSED AT THIS TIME
[2019-04-24 09:09] LABS: CKMB 28.2 U/L (0.0-3.6)
[2019-04-24 09:11] LABS: CREATINE KINASE 852 UL (21-215)
[2019-04-24 09:45] VITALS: BP 120/52
[2019-04-24 13:22] VITALS: BP 153/92
[2019-04-24] MEDS ORDERED: VIBRAMYCIN 100100 MG PO (15:53)
--- NOTE | 2019-04-24 16:15 | NUR ---
DISCHARGE INSTRUCTIONS REVIEWED WITH PATIENT. VERBAL AND WRITTEN ACKNOWLEDGEMENT PROVIDED. INSTRUCTED PATIENT TO CALL DR. CLEMENS'S OFFICE IF NOT HEARD FROM THEM IN ONE WEEK.
--- NOTE | 2019-04-24 16:23 | NUR ---
TO CAR VIA
--- NOTE | 2019-04-25 08:03 | MORECARE ---
CASE MANAGEMENT DISCHARGE SUMMARY PATIENT: TOBY ANNA UNIT: [id number] ADM DATE: 04/22/19 AGE: 54 : 69 SEX: F ROOM/BED: D.9709 AUTHOR: JAQUAN,DOC PHYSICIAN: REFERRING PHYSICIAN: ALVERTO BROUSSARD DO DATE OF SERVICE: 04/25/19 Discharge Plan Patient Name: TOBY ANNA Facility: [facility]:[place] : 1965 Planned Disposition: Home Anticipated Discharge Date: 04/24/19 Discharge Date: 04/24/2019 Expected LOS: 2 Initial Reviewer: [email or web address] Initial Review Date: 04/22/2019 Generated: 04/25/19 9:03 am DCP- Discharge Planning Updated by [email or web address]: Jasmeet Cleaning on 04/23/19 3:[address] Patient Name: TOBY ANNA Admission Status: ER Accout number: [id number] Admission Date: 04-22-2019 : 1965 Admission Diagnosis: Attending: ALVERTO BROUSSARD Current LOS: 1 Anticipated DC Date: 04-24-2019 Planned Disposition: Home Primary Insurance: MEDICAID [place] Discharge Planning Comments: CM MET WITH PT IN ROOM TO DISCUSS DISCHARGE PLANNING AND NEEDS. PT REPORTS LIVING AT HOME INDEPENDENTLY WITH HER BOYFRIEND PT HAS CPAP AND NEBULIZER. PT IS WORKING ON GETTING BIPAP THROUGH DR. BEAR. PT'S MEDICAL EQUIPMENT PROVIDER IS [employer]. PT HAS NO OUTSIDE SERVICES ASSISTING IN THE HOME. CM DISCUSSED AVAILABILITY OF HOME HEALTH, REHAB SERVICES AND MEDICAL EQUIPMENT. PT DENIES DISCHARGE NEEDS, REPORTS HER CAR IS IN THE PARKING LOT FOR HER TO DRIVE HERSELF HOME WHEN DISCHARGED. PT PLANS TO DISCHARGE HOME WITH BOYFRIEND, WILL BE DRIVING SELF HOME. PT HAS NO ANTICIPATED NEEDS FOR DISCHARGE AT THIS TIME. CM TO FOLLOW AND ASSIST IF NEEDED. Scout: Jasmeet Cleaning DCPIA - Discharge Planning Initial Assessment Updated by [email or web address]: Jasmeet Cleaning on 04/23/19 4:48 pm * Is the patient Alert and Oriented? Yes * How many steps to enter\exit or inside your home? * PCP DR. HILLIARD, [facility] * Pharmacy [facility] ON [address] * Preadmission Environment Home with Family * ADLs Independent * Equipment CPAP Nebulizer * Other Equipment [employer] - MEDICAL EQUIPMENT PROVIDER * List name and contact numbers for known caregivers / representatives who currently or will assist patient after discharge: STACIA ANAND, , * Verbal permission to speak to the caregivers and representatives has been obtained from the patient. N/A * Community resources currently utilized None * Please name any agencies selected above. NONE * Additional services required to return to the preadmission environment? No * Can the patient safely return to the preadmission environment? Yes * Has this patient been hospitalized within the prior 30 days at any hospital? No Last DP export: 04/23/19 3:54 p Patient Name: TOBY ANNA Page [id number] at 0803 All edits/amendments must be made on the electronic document DICTATION DATE: 04/25/19802 MANUFACTURING TEST ENGINEER: SURESH 04/25/19802 RPT#: [id number] DC DATE:04/24/19 STATUS: DIS IN [facility] [address] [place] [address] END OF REPORT
[2019-04-25 13:10] LABS: PROCALCITONIN 0.03 ng/mL (0.00-0.08)
== END 2019-04-24 16:24 | disposition home or self-care (01) | DRG 202 ==
LOC: D.ER 15:32 → D.M2 18:58
PROVIDERS: Family Medicine; Internal Medicine Pulmonary Disease; ADMIT Family Medicine; ATTEND Family Medicine
DX: J45.901 Unspecified asthma with (acute) exacerbation (principal); Z68.41 Body mass index [BMI] 40.0-44.9, adult; I10 Essential (primary) hypertension; E87.6 Hypokalemia; E03.9 Hypothyroidism, unspecified; K21.9 Gastro-esophageal reflux disease without esophagitis; F32.9 Major depressive disorder, single episode, unspecified; E66.01 Morbid (severe) obesity due to excess calories; J20.9 Acute bronchitis, unspecified

== ENCOUNTER → 2019-05-07 22:19 | Outpatient (CLI) | payer MEDICAID ==
[2019-04-23 09:42] VITALS: BMI 44.4
[~2019-05-07 22:19] MED LIST changes: +VIBRAMYCIN 100100 MG PO
== END | disposition home or self-care (01) ==
LOC: D.LABREF 22:19
PROVIDERS: ATTEND Urology
DX: Z98.890 Other specified postprocedural states (principal)

== ENCOUNTER 2020-01-23 07:00 | Day surgery (SDC) | payer MEDICAID ==
[2020-01-21 09:07] LABS: HEMATOCRIT 38.5 % (36.0-48.0); HEMOGLOBIN 11.7 g/dL (12-16); MCH 26.1 pg (26.0-34.0); MCHC 30.4 g/dL (31.0-37.0); MCV 85.9 fL (80.0-100.0); MEAN PLATELET VOLUME 8.5 fL (7.4-10.4); RBC 4.48 10x6/uL (4.00-5.40); RDW 16.1 % (11.5-14.5); WBC 6.1 10x3/uL (4.8-10.8)
[2020-01-21 09:08] LABS: ANION GAP 12.1 mmol/L (8-16); CALCIUM 9.6 mg/dL (8.5-10.1); CARBON DIOXIDE 27.5 mmol/L (21.0-32.0); POTASSIUM - SERUM 3.6 mmol/L (3.5-5.1)
[~2020-01-23] VITALS: Ht 157.5 cm; Wt 113.4 kg
[~2020-01-23 07:00] MED LIST changes: +ALBUTEROL2.5 MG/3 M INH; +BACLOFEN10 MG PO; +FLUTICASONE PRO16 GM NASAL; +SINGULAIR10 MG PO
[2020-01-23 07:34] VITALS: BP 129/70; Ht 157.5 cm; Wt 113.4 kg
--- NOTE | 2020-01-24 07:30 | OP ---
PATIENT NAME: TOBY ANNA MEDICAL RECORD: [id number] :[birth year] LOCATION:DGuilleOPS ADMISSION DATE: SURGEON: JIMENEZ DIEHL DO DATE OF OPERATION: 01/23/2020 PROCEDURE PERFORMED: Left endoscopic carpal tunnel release. PREOPERATIVE DIAGNOSIS: Carpal tunnel syndrome. POSTOPERATIVE DIAGNOSIS: Carpal tunnel syndrome. INDICATIONS: Ms. Anna is a 54-year-old female who has had carpal tunnel syndrome for quite some time. She had been waiting to get that done as her has been going through some other medical problems. She finally got to a point where she said she could not withstand anymore, was awakening her up at night and could not function throughout her day with the pain. I informed her of the risks including infection, bleeding, damage to nerves and vessel, damage to the median nerve specifically, continued pain, numbness that would not return and she signed the consent. SURGEON: Jimenez Diehl DO DESCRIPTION OF PROCEDURE: The patient was taken to the operative suite, laid in supine position, under general anesthetic, given 1.5 grams of vancomycin. She was then sedated and LMA was placed. The left upper extremity was then prepped and draped in sterile fashion. Timeout was performed, everyone was in agreement of the correct side, site, patient, and procedure. We then began by exsanguinating the left upper extremity. The tourniquet was inflated to 250 mmHg, was up for 5 minutes and made an incision over the wrist crease on the volar side and through the skin with a #15 blade scalpel and made blunt dissection with Ragnell down to the fascia. Once the forearm fascia was released from distal to proximal, I then went to the carpal tunnel with the dilators and then the sheath and then brought in the camera, cleaned off the transverse carpal ligament with a rasp and the probe, ensured there was no transligamentous nerve. I did not see any. The blade was then brought in and raised up and transected the transverse carpal ligament and then once the transected transverse carpal ligament fat herniating down into the carpal tunnel, assuring good release, so then removed the camera and the blade as well as the sheath and used a Ragnell and scissors and spread any remaining fibers of the transverse carpal ligament. I then injected the site with 0.25% Marcaine with epinephrine, approximately 10 mL of it, and tourniquet was let down. It was then closed by Beckie Franks, certified surgical resident, with 5-0 Monocryl in inverted interrupted fashion. Steri-Strips, Adaptic, 4 x 4's, Kerlix, and Coban was lightly wrapped on the hand. She was then awakened and taken to recovery in stable condition. BLOOD LOSS: Minimal. COMPLICATIONS: None. TRANSINT:[id number] Voice Confirmation ID: [id number] DOCUMENT ID: [id number] OPERATIVE REPORT [id number] TOBY ANNA,JIMENEZ Wells DO at 0730 CC: [id number] DICTATION DATE: 01/23/20 09 LOAN APPROVER: 01/23/20 2354 [facility] 01/23/20 [facility] [address] [place] [address]
== END 2020-01-23 10:54 | disposition home or self-care (01) ==
LOC: D.OPS 07:00 → D.PAN 08:45 → D.OPS 10:54 → D.PAN 11:00
PROVIDERS: Anesthesiology; ATTEND Orthopaedic Surgery
DX: G56.02 Carpal tunnel syndrome, left upper limb (principal); J44.9 Chronic obstructive pulmonary disease, unspecified; I10 Essential (primary) hypertension; K21.9 Gastro-esophageal reflux disease without esophagitis

== ENCOUNTER 2020-03-05 08:33 | Day surgery (SDC) | payer MEDICAID ==
[~2020-03-05] VITALS: Ht 157.5 cm; Wt 113.4 kg
[2020-03-05 09:25] LABS: HEMATOCRIT 39.1 % (36.0-48.0); HEMOGLOBIN 11.9 g/dL (12-16); MCH 26.1 pg (26.0-34.0); MCHC 30.4 g/dL (31.0-37.0); MCV 85.7 fL (80.0-100.0); MEAN PLATELET VOLUME 8.3 fL (7.4-10.4); RBC 4.56 10x6/uL (4.00-5.40); RDW 16.1 % (11.5-14.5); WBC 7.1 10x3/uL (4.8-10.8)
[2020-03-05 09:38] LABS: ANION GAP 9.6 mmol/L (8-16); CALCIUM 9.5 mg/dL (8.5-10.1); CARBON DIOXIDE 33.3 mmol/L (21.0-32.0); POTASSIUM - SERUM 3.9 mmol/L (3.5-5.1)
[2020-03-05 11:12] VITALS: BP 108/88; Ht 157.5 cm; Wt 113.4 kg
--- NOTE | 2020-03-09 06:52 | OP ---
PATIENT NAME: TOBY ANNA MEDICAL RECORD: [id number] :[birth year] LOCATION:D.OPS ADMISSION DATE: SURGEON: GORDON DIEHL DO DATE OF OPERATION: 03/05/2020 PROCEDURE PERFORMED: Right endoscopic carpal tunnel release. PREOPERATIVE DIAGNOSIS: Right carpal tunnel syndrome. POSTOPERATIVE DIAGNOSIS: Right carpal tunnel syndrome. INDICATIONS: Ms. Anna is a 55-year-old female who had left carpal tunnel done. She had bilateral carpal tunnel syndrome for quite some time. She had a left one done a few weeks ago, wanted the right one done. She is aware of the risks including infection, bleeding, damage to nerves and vessels, need for further surgery, damage to the transligamentous nerve branch if there was one, continued pain, swelling, and she signed the consent. SURGEON: Gordon Diehl DO DESCRIPTION OF PROCEDURE: The patient taken to the operative suite, laid in supine position, given 2 grams Ancef preoperatively. Right upper extremity was then prepped and draped in sterile fashion. Timeout was performed. Everyone was in agreement with the correct site, side, patient, and procedure. I then began by exsanguinating the right upper extremity with Esmarch and the tourniquet was inflated to 250 mmHg, it was up for 9 minutes. I then made an incision centered over the palmaris longus tendon a cm in length and made blunt dissection with Ragnells down to median nerve and then released the forearm fascia from distal to proximal about a cm and then entered the dilators into the carpal tunnel, put the sheath in from the SegWAY and put the camera in. I then cleaned off the transverse carpal ligament with a rasp and a probe to ensure there was no transligamentous nerve, I did not see one, I then put in the blade and raised it up and transected the transverse carpal ligament, fat herniated down into the carpal tunnel. I then removed all the instruments. Used Ragnell and scissors and spread to make sure there were no remaining fragments of the transverse carpal ligament intact and there were not. The tourniquet was then let down. I injected the site with 0.25% Marcaine with epinephrine approximately 8 mL and then Beckie Franks, certified director medical surgical, closed the site with 5-0 Monocryl in inverted interrupted fashion. Steri-Strips, Adaptic, 4 x 4's, Kerlix, and Coban was then lightly wrapped on the hand. She was awakened and taken to recovery in stable condition. BLOOD LOSS: Minimal. TOURNIQUET: Inflated for 9 minutes. COMPLICATIONS: None. TRANSINT:[id number] Voice Confirmation ID: [id number] DOCUMENT ID: [id number] OPERATIVE REPORT [id number] TOBY ANNA MICHAEL D, DO at 0652 CC: [id number] DICTATION DATE: 03/05/20 1443 [facility] OPERATOR: 03/06/20 0017 [facility] 03/05/20 [facility] [address] [place] [address]
== END 2020-03-05 16:15 | disposition home or self-care (01) ==
LOC: D.OPS 08:33
PROVIDERS: Anesthesiology; ATTEND Orthopaedic Surgery
DX: G56.03 Carpal tunnel syndrome, bilateral upper limbs (principal); J44.9 Chronic obstructive pulmonary disease, unspecified; I10 Essential (primary) hypertension; K21.9 Gastro-esophageal reflux disease without esophagitis

== ENCOUNTER 2020-03-07 08:08 | Emergency (ER) | payer MEDICAID ==
[~2020-03-07] VITALS: Ht 157.5 cm; Wt 113.6 kg
[2020-03-07 08:18] VITALS: Ht 157.5 cm; Wt 113.6 kg
[2020-03-07] MEDS ORDERED: PROZAC20 MG PO (08:20)
[2020-03-07 08:32] LABS: BASOPHILS 0.4 % (0-2); EOSINOPHILS 3.1 % (0-7); HEMATOCRIT 36.1 % (36.0-48.0); IMMATURE GRANULOCYTES 0.6 % (0-5); LYMPHOCYTES 20.7 % (15-50); MCH 26.3 pg (26.0-34.0); MCHC 30.5 g/dL (31.0-37.0); MCV 86.2 fL (80.0-100.0); MEAN PLATELET VOLUME 8.5 fL (7.4-10.4); MONOCYTES 9.2 % (2-11); PLATELET COUNT 321 10x3/uL (130-400); RBC 4.19 10x6/uL (4.00-5.40); RDW 16.5 % (11.5-14.5)
[2020-03-07 08:33] LABS: WBC 10.5 10x3/uL (4.8-10.8)
[2020-03-07 08:40] LABS: CALC OSMOLALITY 284 mosm/kg (275-300); CALCIUM 8.8 mg/dL (8.5-10.1); CHLORIDE - SERUM 104 mmol/L (98-107); GLUCOSE 139 mg/dL (74-106); POTASSIUM - SERUM 3.9 mmol/L (3.5-5.1); SODIUM 140 mmol/L (136-145); UREA NITROGEN 24 mg/dL (7-18); eGFR NON AFRICAN AMERICAN 61 mL/min (90-120)
[2020-03-07 08:47] LABS: APTT 27.2 SECONDS (22.8-39.4); INR 0.86 (0.85-1.17); PROTIME 11.7 SECONDS (11.6-15.0)
[2020-03-07 08:58] LABS: ALBUMIN 3.8 g/dL (3.4-5.0); ALKALINE PHOSPHATASE 92 U/L (30-120); ALT (SGPT) 38 U/L (10-68); BILIRUBIN - TOTAL 0.22 mg/dL (0.2-1.3); CKMB 15.3 U/L (0.0-3.6); CREATINE KINASE 403 UL (21-215); D-DIMER-QUANTITATIVE 0.37 ug/mLFEU (0.20-0.54); MAGNESIUM - SERUM 1.8 mg/dL (1.8-2.4); PROTEIN - SERUM 7.5 g/dL (6.4-8.2)
[2020-03-07 08:59] LABS: TROPONIN-I < 0.017 ng/mL (0.000-0.060)
[2020-03-07] MEDS ORDERED: ACETAMINOPHEN500 M1 PO (12:25)
[2020-03-07] MEDS ORDERED: IBUPROFEN800 MG PO (12:25)
[2020-03-07] MEDS ORDERED: CYCLOBENZAPRINE10 MG PO (12:25)
[2020-03-07 12:47] VITALS: BP 119/92
== END 2020-03-07 12:49 | disposition home or self-care (01) ==
LOC: D.ER 08:08
PROVIDERS: Family Medicine
DX: R07.89 Other chest pain (principal); M94.0 Chondrocostal junction syndrome [Tietze]; M79.18 Myalgia, other site; T14.8XXA Other injury of unspecified body region, initial encounter; I10 Essential (primary) hypertension; J44.9 Chronic obstructive pulmonary disease, unspecified; M54.9 Dorsalgia, unspecified; K21.9 Gastro-esophageal reflux disease without esophagitis

== ENCOUNTER → 2020-04-16 11:28 | Outpatient (CLI) | payer MEDICAID ==
[2020-03-07 08:18] VITALS: BMI 45.8
[~2020-04-16 11:28] MED LIST changes: +ACETAMINOPHEN500 M1 PO; +CYCLOBENZAPRINE10 MG PO; +IBUPROFEN800 MG PO
== END | disposition home or self-care (01) ==
LOC: D.LAB 11:28
PROVIDERS: ATTEND Internal Medicine Pulmonary Disease
DX: Z11.59 Encounter for screening for other viral diseases (principal)

== ENCOUNTER → 2020-04-19 08:37 | Outpatient (CLI) | payer MEDICAID ==
[2020-03-07 08:18] VITALS: BMI 45.8
== END | disposition home or self-care (01) ==
LOC: D.RT 08-15 09:30
PROVIDERS: ATTEND Internal Medicine Pulmonary Disease
DX: R94.2 Abnormal results of pulmonary function studies (principal); R06.00 Dyspnea, unspecified

== ENCOUNTER 2020-10-09 13:52 | Emergency (ER) | payer MEDICAID ==
[~2020-10-09] VITALS: Ht 157.5 cm; Wt 118.2 kg
[~2020-10-09 13:52] MED LIST changes: +HYDROCODON-ACE1 EAC7 PO; +TORADOL10 MG PO
[2020-10-09 13:58] VITALS: BP 159/85; Ht 157.5 cm; Wt 118.2 kg
[2020-10-09] MEDS ORDERED: HYDROCODON-ACE1 EA10 PO (15:13)
== END 2020-10-09 16:25 | disposition home or self-care (01) ==
LOC: D.ER 13:52
DX: R07.81 Pleurodynia (principal); S22.39XA Fracture of one rib, unspecified side, initial encounter for closed fracture; X58.XXXA Exposure to other specified factors, initial encounter

== ENCOUNTER 2020-11-06 11:17 | Emergency (ER) | payer MEDICAID ==
[~2020-11-06] VITALS: Ht 157.5 cm; Wt 118.2 kg
[~2020-11-06 11:17] MED LIST changes: +HYDROCODON-ACE1 EA10 PO
[2020-11-06 11:48] VITALS: Ht 157.5 cm; Wt 118.2 kg
[2020-11-06] MEDS ORDERED: IBUPROFEN800 MG PO (14:02)
[2020-11-06] MEDS ORDERED: SKELAXIN800 MG PO (14:02)
[2020-11-06] MEDS ORDERED: ACETAMINOPHEN500 M1 PO (14:02)
[2020-11-06 14:18] VITALS: BP 128/71
== END 2020-11-06 14:19 | disposition home or self-care (01) ==
LOC: D.ER 11:17
DX: R07.81 Pleurodynia (principal); R07.89 Other chest pain; M79.10 Myalgia, unspecified site; J44.9 Chronic obstructive pulmonary disease, unspecified; S29.011A Strain of muscle and tendon of front wall of thorax, initial encounter; X50.0XXA Overexertion from strenuous movement or load, initial encounter; Y93.9 Activity, unspecified; Y92.9 Unspecified place or not applicable

== ENCOUNTER 2020-11-14 06:05 | Emergency (ER) | payer MEDICAID ==
[~2020-11-14] VITALS: Ht 157.5 cm; Wt 118.2 kg
[~2020-11-14 06:05] MED LIST changes: +SKELAXIN800 MG PO
[2020-11-14 06:09] VITALS: BP 133/62; Ht 157.5 cm; Wt 118.2 kg
[2020-11-14] MEDS ORDERED: ALENDRONATE SOD35 MG PO (06:11)
[2020-11-14] MEDS ORDERED: IBUPROFEN800 MG PO (07:07)
[2020-11-14] MEDS ORDERED: ULTRAM50 MG PO (07:09)
== END 2020-11-14 07:15 | disposition home or self-care (01) ==
LOC: D.ER 06:05
DX: R07.89 Other chest pain (principal); J44.9 Chronic obstructive pulmonary disease, unspecified

== ENCOUNTER 2020-12-13 10:36 | Day surgery (SDC) | payer MEDICARE ==
[~2020-12-13] VITALS: Ht 157.5 cm; Wt 118.8 kg
[~2020-12-13 10:36] MED LIST changes: +ALENDRONATE SOD35 MG PO; +ARMOUR THYROID30 MG PO; +HALOBETASOL; +KENALOG IN ORABA5 GM TOPICAL; +TRELEGY ELLIPT1 EACH INH; +VITAMIN D325 MC1 PO; +[UNRECOGNIZED DRUG - OTHER]
[2020-12-13 11:07] LABS: BASOPHILS 0.8 % (0-2); EOSINOPHILS 9.7 % (0-7); HEMATOCRIT 34.6 % (36.0-48.0); HEMOGLOBIN 11.2 g/dL (12-16); LYMPHOCYTES 18.6 % (15-50); MCH 26.1 pg (26.0-34.0); MCHC 32.3 g/dL (31.0-37.0); MCV 80.7 fL (80.0-100.0); MEAN PLATELET VOLUME 6.7 fL (7.4-10.4); MONOCYTES 6.6 % (2-11); NEUTROPHILS 64.3 % (40-80); RBC 4.29 10x6/uL (4.00-5.40); WBC 9.1 10x3/uL (4.8-10.8)
[2020-12-13 11:16] LABS: ANION GAP 10.4 mmol/L (8-16); CALCIUM 9.5 mg/dL (8.5-10.1); PLATELET COUNT 336 10x3/uL (130-400); POTASSIUM - SERUM 3.4 mmol/L (3.5-5.1)
[2020-12-13 11:24] LABS: HCG SERUM NEGATIVE (NEGATIVE)
[2020-12-13 13:04] VITALS: BP 122/64; Ht 157.5 cm; Wt 118.8 kg
--- NOTE | 2020-12-13 16:25 | NUR ---
PT UP TO BATHROOM AND VOIDED. HAVING SMALL AMOUNT OF VAGINAL BLEEDING. PROVIDED PT WITH LUNA PAD. IV THEN DC'D WHEN PT BACK TO BED AND DISCHARGE INSTRUCTIONS REVIEWED WITH PT AND SPOUSE. BOTH VOICED UNDERSTANDING. COPY OF DC INSTRUCTIONS AND ORIGINAL RX FOR PERCOCET PROVIDED TO PT. PT NOW GETTING DRESSED. 1648- PT DISCHARGED VIA W/C, ACCOMPANIED BY THIS NURSE, TO POV WITH SPOUSE DRIVING. ALL BELONGINGS WITH PT/SPOUSE.
== END 2020-12-13 16:48 | disposition home or self-care (01) ==
LOC: D.OPS 10:36
PROVIDERS: Anesthesiology; ATTEND Obstetrics & Gynecology Maternal & Fetal Medicine
DX: N95.0 Postmenopausal bleeding (principal)